=== PATIENT | male | born 1985 | race Caucasian/White ===

== ENCOUNTER 2017-03-06 19:30 | Emergency (ER) | payer OTHER ==
[2017-03-06 21:38] VITALS: BP 165/86
--- NOTE | 2017-03-06 21:55 | UC ---
Kassandra Beltrán Nilda, scribed for Azeb Leonard MD on 03/06/17 at 2106 . Complaint Male HPI - HPI Summary HPI Summary: This patient is a 31 year old M presenting to [facility] [place] with a chief complaint of penile bleeding s/p manually manipulating penis back into sheath earlier this evening while masturbating. Pt states he was erect at the time. Patient states he felt a pop at which time blood began to flow from a tear underneath the side of head of erect penis. Penis became completely flaccid immediately when bleeding began. Initially mild pain. No current pain. Bleeding temporarily subsided but has now returned with the pt comparing the flow of blood to epistaxis. The patient rates the aching pain 1/10 in severity with discomfort localized at site of bleeding. No analgesia taken. Patient denies pain, swelling, and ecchymosis in testicles or scrotum. He states he has not urinated since trauma occurred. Pt has no Hx of STI as well as no concerns of STI. Last tetanus shot was 5 years ago, per pt. He denies blood thinner medication, but takes Lisinopril daily. Patients medication reviewed this visit. - History of Current Complaint Chief Complaint: UCSkin Stated Complaint: PERSONAL Time Seen by Provider: 03/06/17 20:55 Hx Obtained From: Patient Onset/Duration: Sudden Onset, Lasting Hours, Still Present Severity Currently: Mild Pain Intensity: 1 Pain Scale Used: 0-10 Numeric Location: Penis Associated Signs And Symptoms: Positive: Penile Discharge - bleeding - Allergies/Home Medications Allergies/Adverse Reactions: Allergies Allergy/AdvReac Type Severity Reaction Status Date / Time No Known Allergies Allergy Verified 03/06/17 19:46 Home Medications: Home Medications Atorvastatin* [Lipitor*] 20 mg PO 1700 03/06/17 [History Confirmed 03/06/17] Lisinopril [Lisinopril 2.5 MG-] 2.5 mg PO DAILY 03/06/17 [History Confirmed ] PMH/Surg Hx/FS Hx/Imm Hx Previously Healthy: Yes Cardiovascular History: Hypertension - Surgical History Surgical History: None - Family History Known Family History: Positive: Hypertension, Diabetes - Social History Occupation: Employed Full-time Alcohol Use: None Substance Use Type: None Smoking Status (MU): Never Smoked Tobacco - Immunization History Most Recent Influenza Vaccination: not this season Most Recent Tetanus Shot: up to date - 2014 Most Recent Pneumonia Vaccination: unknown Review of Systems Constitutional: Negative Skin: Other - tear on foreskin of penis Genitourinary: Other - penile bleeding; negative pain, swelling, and ecchymosis of testicles All Other Systems Reviewed And Are Negative: Yes Physical Exam Triage Information Reviewed: Yes Appearance: Well-Appearing, No Pain Distress, Well-Nourished Vital Signs: Initial Vital Signs Temp 98.5 F 03/06/17 19:39 Pulse 117 03/06/17 19:39 Resp 18 03/06/17 19:39 BP 153/94 03/06/17 19:39 Pulse Ox 100 03/06/17 19:39 Vital Signs Reviewed: Yes Eyes: Negative: Discharge ENT: Positive: Hearing grossly normal Neck exam: Normal Neck: Positive: Supple, Nontender, No Lymphadenopathy Respiratory Exam: Normal Respiratory: Positive: Chest non-tender, Lungs clear, Normal breath sounds, No respiratory distress, No accessory muscle use Cardiovascular Exam: Normal Cardiovascular: Positive: RRR, No Murmur Abdominal Exam: Normal Abdomen Description: Positive: Nontender, No Organomegaly, Soft, Other: - abd soft penis flaccid, uncircumcised retraction of foreskin reveal a 5mm laceration volar aspect of the glans. slight trickle bleeding No edema or ecchymosis of the shaft No apparent malalignment No edema, ecchymosis or discomfort of the scrotum or testicle bilaterally Bowel Sounds: Positive: Present Musculoskeletal Exam: Normal Musculoskeletal: Positive: Strength Intact Neurological Exam: Normal Psychological Exam: Normal Complaint Male Course/Dx - Course Course Of Treatment: This patient is a 31 year old M presenting to [facility] [place] with a chief complaint of penile bleeding s/p manually manipulating penis back into sheath earlier this evening. Patient states he felt a pop at which time blood began to flow from a tear underneath the side of head of erect penis. Penis became completely flaccid immediately when bleeding began. Bleeding temporarily subsided but has now returned with the pt comparing the flow of blood to epistaxis. The patient rates the aching pain 1/10 in severity with discomfort localized at site of bleeding. Patient denies pain, swelling, and ecchymosis in testicles. He states he has not urinated since trauma occurred. Pt has no Hx of STI as well as no concerns of STI. Last tetanus shot was 5 years ago, per pt. He denies blood thinner medication, but takes Lisinopril daily. Patients medication reviewed this visit. . Pt ambulated to the bathroom and was able to urinate without difficulty. Blood pressure noted Pt is on lisinopril. [2114 ] consult with Dr. Leon (urology) to discuss plan of care. No it architecture consultant this evening. Concerned as pt became flaccid with popping sound. Recommend pt transfer to [facility] for further evaluation of penile fracture. Call to [facility] transfer center - awaiting call back. 2150. Spoke with Dr. NGO in the ED. Accepting pt to [address] [place] [address] - Differential Dx/Diagnosis Provider Diagnoses: penile injury. penile laceration - Physician Notifications Discussed Patient Care With: Edi Leon - Urology Time Discussed With Above Provider: 21:15 Instructed by Provider To: Other - recommends imaging. Discussed plan of care. Discharge - Discharge Plan Condition: Stable Disposition: [facility] CARE FAC Patient Education Materials: Laceration (ED) Referrals: Praful Hsieh MD [Primary Care Provider] - Additional Instructions: The doctor that evaluated you at the urgent care center recommends you go to the emergency department in [place]. Bring the packet of information with you to the emergency department. The documentation as recorded by the Kassandra disla Nilda accurately reflects the service I personally performed and the decisions made by me, Azeb Leonard MD.
== END 2017-03-06 22:10 | disposition short-term general hospital (02) ==
LOC: UCEAST 19:30
DX: S31.21XA Laceration without foreign body of penis, initial encounter (principal); S39.848A Other specified injuries of external genitals, initial encounter; X58.XXXA Exposure to other specified factors, initial encounter; Y93.89 Activity, other specified; Y92.9 Unspecified place or not applicable; Y99.9 Unspecified external cause status; I10 Essential (primary) hypertension
CPT/HCPCS: 99212; G0463

== ENCOUNTER 2022-01-04 01:26 | Inpatient (IN) ==
[2022-01-04] MEDS ORDERED: LACTATED RINGERS IV ONE (05:43)
[2022-01-04] MEDS ORDERED: Piperacillin/Tazobac ADVAN 3.375 GM in NS 0.9% 100 ml BAG 100 ML IV ONE (05:59)
[2022-01-04] MEDS ORDERED: Vancomycin 2,000 MG in NS 0.9% 250 ml 250 ML IVPB SCH (06:00)
[2022-01-04 06:03] LABS: ABS Basophils 0.1 10^3/ul (0-0.2); ABS Lymphocytes 1.1 10^3/ul (1.0-4.8); ABS Monocytes 1.3 10^3/ul (0-0.8); ABS Neutrophils 15.3 10^3/ul (1.5-7.7); ABS Nucleated RBC 0.1 10^3/ul; Eosinophil % 0.2 %; Hematocrit 40 % (42-52); Hemoglobin 13.4 g/dL (14.0-18.0); Lymphocyte % 6.1 %; Mean Corpuscular HGB Conc 34 g/dL (31-36); Mean Corpuscular Hemoglobin 29 pg (27-31); Mean Corpuscular Volume 85 fL (80-94); Mean Platelet Volume 7.1 fL (7.4-10.4); Nucleated Red Blood Cells % 0.4; Platelet Count 341 10^3/uL (150-450); Red Blood Count 4.67 10^6 /uL (4.18-5.48); Red Cell Distribution Width 15 % (10-15); White Blood Count 17.9 10^3/uL (3.5-10.8)
[2022-01-04 06:20] LABS: Activated Partial Thrombo Time 35.9 seconds (26.0-38.0); INR 1.27 (0.89-1.11)
[2022-01-04 06:50] LABS: Albumin 4.1 g/dL (3.2-5.2); Albumin/Globulin Ratio 1.1 (1-3); C Reactive Protein 197.88 mg/L (<8.01); Calcium 9.5 mg/dL (8.6-10.3); Globulin 3.7 g/dL (2-4); Potassium 4.8 mmol/L (3.5-5.0); Total Bilirubin 0.7 mg/dL (0.2-1.0); Total Protein 7.8 g/dL (6.4-8.9)
[2022-01-04 07:28] LABS: High Sensitivity Troponin 1 Hr 3 pg/mL (<20)
[2022-01-04] MEDS ORDERED: Vancomycin 2,000 MG in NS 0.9% 500 ml BAG 500 ML IVPB ONE (09:30)
[2022-01-04] MEDS ORDERED: Dextrose 50% Syringe 50 ml 25 GM/50 ML SYRINGE IV PUSH PRN (12:23)
[2022-01-04] MEDS: Enoxaparin 40 MG/0.4 ML SYR SUBCUT SCH (12:55)
[2022-01-04] MEDS ORDERED: Vancomycin per Pharmacy 1 EA NOTE FOLLOW UP SCH (13:00)
[2022-01-04] MEDS: metroNIDAZOLE IV 500 MG/100ML 500 MG/100 ML BAG IVPB SCH (13:30)
[2022-01-04] MEDS: Cefepime 2 GM in Dextrose 2 GM/50 ML BAG IV SCH ×2 (13:30→23:52)
[2022-01-04 16:55] LABS: Urine Appearance Clear; Urine Bilirubin Negative (Negative); Urine Blood Negative (Negative); Urine Color Straw; Urine Glucose 3+(>=500 mg/dL) (Negative); Urine Ketones Negative (Negative); Urine Nitrite Negative (Negative); Urine Protein Negative (Negative); Urine Specific Gravity 1.017 (1.002-1.030); Urine Urobilinogen Negative (Negative)
[2022-01-04] MEDS ORDERED: Gadoteridol (CONTRAST) 279.3 MG/ML 10 ML IV ONE (17:16)
[2022-01-04] MEDS: Vancomycin 1,500 MG in NS 0.9% 250 ml 250 ML IVPB SCH (21:49)
[2022-01-05] MEDS: metroNIDAZOLE IV 500 MG/100ML 500 MG/100 ML BAG IVPB SCH ×2 (00:28→13:25)
[2022-01-05 07:19] LABS: ABS Basophils 0.1 10^3/ul (0-0.2); ABS Eosinophils 0.1 10^3/ul (0-0.6); ABS Lymphocytes 1.1 10^3/ul (1.0-4.8); ABS Monocytes 0.9 10^3/ul (0-0.8); ABS Neutrophils 9.7 10^3/ul (1.5-7.7); Eosinophil % 0.5 %; Hematocrit 36 % (42-52); Hemoglobin 11.5 g/dL (14.0-18.0); Lymphocyte % 9.1 %; Mean Corpuscular HGB Conc 32 g/dL (31-36); Mean Corpuscular Hemoglobin 28 pg (27-31); Mean Corpuscular Volume 87 fL (80-94); Mean Platelet Volume 7.2 fL (7.4-10.4); Platelet Count 278 10^3/uL (150-450); Red Blood Count 4.06 10^6 /uL (4.18-5.48); Red Cell Distribution Width 15 % (10-15); White Blood Count 11.8 10^3/uL (3.5-10.8)
[2022-01-05 08:01] LABS: Potassium 4.9 mmol/L (3.5-5.0); eGFR CKD-EPI 99.5 (>60)
[2022-01-05] MEDS: Vancomycin 1,500 MG in NS 0.9% 250 ml 250 ML IVPB SCH (11:00)
[2022-01-05] MEDS: Cefepime 2 GM in Dextrose 2 GM/50 ML BAG IV SCH (12:50)
[2022-01-05 12:55] LABS: C Reactive Protein 231.15 mg/L (<8.01)
[2022-01-05] MEDS: Enoxaparin 40 MG/0.4 ML SYR SUBCUT SCH (13:32)
[2022-01-05] MEDS: METFORMIN 500 MG PO SCH (20:19)
[2022-01-06] MEDS: Cefepime 2 GM in Dextrose 2 GM/50 ML BAG IV SCH (00:05)
[2022-01-06] MEDS: metroNIDAZOLE IV 500 MG/100ML 500 MG/100 ML BAG IVPB SCH ×2 (00:38→13:15)
[2022-01-06 05:31] LABS: ABS Basophils 0.1 10^3/ul (0-0.2); ABS Lymphocytes 1.1 10^3/ul (1.0-4.8); ABS Neutrophils 11.8 10^3/ul (1.5-7.7); Eosinophil % 0.3 %; Hematocrit 35 % (42-52); Hemoglobin 11.6 g/dL (14.0-18.0); Lymphocyte % 7.8 %; Mean Corpuscular HGB Conc 33 g/dL (31-36); Mean Corpuscular Hemoglobin 28 pg (27-31); Mean Corpuscular Volume 85 fL (80-94); Mean Platelet Volume 6.8 fL (7.4-10.4); Platelet Count 324 10^3/uL (150-450); Red Blood Count 4.08 10^6 /uL (4.18-5.48); Red Cell Distribution Width 15 % (10-15)
[2022-01-06 06:50] LABS: Magnesium 1.8 mg/dL (1.9-2.7); eGFR CKD-EPI 98.3 (>60)
[2022-01-06] MEDS ORDERED: Vancomycin Trough Check NOTE FOLLOW UP ONE ×2 (09:30)
[2022-01-06] MEDS ORDERED: fentaNYL 100 mcg/2 ml 50 MCG/ML VIAL ONE (10:19)
[2022-01-06] MEDS ORDERED: Lidocaine 2% PF 5 ML VIAL ONE (10:19)
[2022-01-06] MEDS ORDERED: Metoclopramide 5 MG/ML VIAL (10 mg) ONE (10:19)
[2022-01-06] MEDS ORDERED: Dexamethasone IV 4 MG/ML VIAL 1 ml VIAL ONE (10:19)
[2022-01-06] MEDS ORDERED: Ondansetron 4 mg VIAL 2 MG/ML 2 ml VIAL ONE (10:19)
[2022-01-06] MEDS ORDERED: ceFAZolin VIAL VIAL ONE (10:27)
[2022-01-06] MEDS: METFORMIN 500 MG PO SCH (10:45)
[2022-01-06] MEDS ORDERED: fentaNYL 100 mcg/2 ml 50 MCG/ML VIAL IV PRN (10:58)
[2022-01-06] MEDS ORDERED: Prochlorperazine 5 mg/ml 2 ml VIAL (10 mg) IV PRN (10:58)
[2022-01-06] MEDS ORDERED: HYDROmorphone 1 MG/1 ML SYRINGE IV PRN (10:58)
[2022-01-06] MEDS ORDERED: Ondansetron 4 mg VIAL 2 MG/ML 2 ml VIAL IV PRN (10:58)
[2022-01-06] MEDS ORDERED: Propofol 10 MG/ML 20 ML BTL ONE (11:03)
[2022-01-06] MEDS: Pantoprazole VIAL 40 MG VIAL IV SCH (12:37)
[2022-01-06] MEDS: cefTRIAXone 2 gm/50 mL D5W 2 GM/50 ML BAG IV SCH (12:43)
[2022-01-06] MEDS: Enoxaparin 40 MG/0.4 ML SYR SUBCUT SCH (13:11)
[2022-01-07] MEDS: metroNIDAZOLE IV 500 MG/100ML 500 MG/100 ML BAG IVPB SCH ×2 (00:52→13:38)
[2022-01-07 06:45] LABS: ABS Basophils 0.1 10^3/ul (0-0.2); ABS Eosinophils 0.1 10^3/ul (0-0.6); ABS Lymphocytes 1.1 10^3/ul (1.0-4.8); ABS Neutrophils 13.1 10^3/ul (1.5-7.7); Eosinophil % 0.4 %; Hematocrit 34 % (42-52); Hemoglobin 11.2 g/dL (14.0-18.0); Lymphocyte % 7.2 %; Mean Corpuscular HGB Conc 33 g/dL (31-36); Mean Corpuscular Hemoglobin 29 pg (27-31); Mean Corpuscular Volume 86 fL (80-94); Mean Platelet Volume 7.1 fL (7.4-10.4); Platelet Count 329 10^3/uL (150-450); Red Blood Count 3.94 10^6 /uL (4.18-5.48); Red Cell Distribution Width 15 % (10-15); White Blood Count 15.3 10^3/uL (3.5-10.8)
[2022-01-07 07:17] LABS: Blood Urea Nitrogen 23 mg/dL (6-24); CO2 Carbon Dioxide 19 mmol/L (22-32); Calcium 9.1 mg/dL (8.6-10.3); Chloride 101 mmol/L (101-111); Glucose 210 mg/dL (70-100); Sodium 134 mmol/L (135-145); eGFR CKD-EPI 89.8 (>60)
[2022-01-07 07:37] LABS: Anion Gap 14 mmol/L (2-11); CRP High Sensitivity 186.72 mg/L (<2.00)
[2022-01-07] MEDS: Pantoprazole VIAL 40 MG VIAL IV SCH (08:22)
[2022-01-07] MEDS: cefTRIAXone 2 gm/50 mL D5W 2 GM/50 ML BAG IV SCH (12:50)
[2022-01-07] MEDS: Enoxaparin 40 MG/0.4 ML SYR SUBCUT SCH (13:41)
[2022-01-07] MEDS ORDERED: NS 0.9% 500 ml BAG 500 ML IV ONE (16:36)
[2022-01-08] MEDS: metroNIDAZOLE IV 500 MG/100ML 500 MG/100 ML BAG IVPB SCH ×2 (01:09→13:48)
[2022-01-08 06:19] LABS: ABS Basophils 0.1 10^3/ul (0-0.2); ABS Eosinophils 0.1 10^3/ul (0-0.6); ABS Lymphocytes 1.5 10^3/ul (1.0-4.8); ABS Neutrophils 12.4 10^3/ul (1.5-7.7); Hematocrit 34 % (42-52); Hemoglobin 11.3 g/dL (14.0-18.0); Lymphocyte % 9.7 %; Mean Corpuscular HGB Conc 33 g/dL (31-36); Mean Corpuscular Hemoglobin 29 pg (27-31); Mean Corpuscular Volume 86 fL (80-94); Mean Platelet Volume 7.3 fL (7.4-10.4); Platelet Count 356 10^3/uL (150-450); Red Blood Count 3.95 10^6 /uL (4.18-5.48); Red Cell Distribution Width 15 % (10-15)
[2022-01-08 06:34] LABS: Blood Urea Nitrogen 22 mg/dL (6-24); CO2 Carbon Dioxide 19 mmol/L (22-32); Chloride 100 mmol/L (101-111); Glucose 201 mg/dL (70-100); Sodium 130 mmol/L (135-145)
[2022-01-08 06:35] LABS: C Reactive Protein 236.87 mg/L (<8.01); Calcium 9.1 mg/dL (8.6-10.3); eGFR CKD-EPI 109.8 (>60)
[2022-01-08 06:40] LABS: Anion Gap 11 mmol/L (2-11)
[2022-01-08] MEDS ORDERED: SODIUM ZIRCONIUM CYCLOSILICATE 5 GM PACKET PO ONE (08:47)
[2022-01-08] MEDS: Pantoprazole VIAL 40 MG VIAL IV SCH (09:03)
[2022-01-08] MEDS: Enoxaparin 40 MG/0.4 ML SYR SUBCUT SCH (13:51)
[2022-01-08] MEDS: cefTRIAXone 2 gm/50 mL D5W 2 GM/50 ML BAG IV SCH (15:01)
[2022-01-09] MEDS: metroNIDAZOLE IV 500 MG/100ML 500 MG/100 ML BAG IVPB SCH ×2 (01:55→12:44)
[2022-01-09 06:10] LABS: ABS Basophils 0.1 10^3/ul (0-0.2); ABS Eosinophils 0.2 10^3/ul (0-0.6); ABS Lymphocytes 1.7 10^3/ul (1.0-4.8); ABS Monocytes 0.8 10^3/ul (0-0.8); Eosinophil % 1.5 %; Hematocrit 36 % (42-52); Mean Corpuscular HGB Conc 33 g/dL (31-36); Mean Corpuscular Hemoglobin 28 pg (27-31); Mean Corpuscular Volume 85 fL (80-94); Mean Platelet Volume 7.5 fL (7.4-10.4); Platelet Count 400 10^3/uL (150-450); Red Blood Count 4.24 10^6 /uL (4.18-5.48); Red Cell Distribution Width 15 % (10-15); White Blood Count 13.8 10^3/uL (3.5-10.8)
[2022-01-09 06:55] LABS: Blood Urea Nitrogen 24 mg/dL (6-24); C Reactive Protein 180.35 mg/L (<8.01); CO2 Carbon Dioxide 20 mmol/L (22-32); Calcium 9.2 mg/dL (8.6-10.3); Chloride 97 mmol/L (101-111); Glucose 185 mg/dL (70-100); Sodium 135 mmol/L (135-145); eGFR CKD-EPI 114.2 (>60)
[2022-01-09 06:59] LABS: Anion Gap 18 mmol/L (2-11)
[2022-01-09] MEDS: Pantoprazole VIAL 40 MG VIAL IV SCH (08:41)
[2022-01-09] MEDS ORDERED: ceFAZolin 2 GM in NS PREMIX 2 GM/100 ML BAG IVPB SCH (10:00)
[2022-01-09] MEDS ORDERED: Vancomycin per Pharmacy 1 EA NOTE FOLLOW UP SCH (12:00)
[2022-01-09] MEDS: Enoxaparin 40 MG/0.4 ML SYR SUBCUT SCH (12:46)
[2022-01-09] MEDS: Insulin GLARGINE 100 un/ml 10 ml VIAL SUBCUT SCH (12:47)
[2022-01-09] MEDS ORDERED: Vancomycin 2,000 MG in NS 0.9% 500 ml BAG 500 ML IVPB ONE (14:30)
[2022-01-09] MEDS ORDERED: Vancomycin 1,250 MG in NS 0.9% 250 ml 250 ML IVPB SCH (22:30)
[2022-01-10] MEDS ORDERED: cefTRIAXone 2 gm/50 mL D5W 2 GM/50 ML BAG IV ONE (00:17)
[2022-01-10] MEDS: metroNIDAZOLE IV 500 MG/100ML 500 MG/100 ML BAG IVPB SCH ×2 (03:52→13:10)
[2022-01-10] MEDS: Vancomycin 1,500 MG in NS 0.9% 250 ml 250 ML IVPB SCH ×2 (05:42→17:49)
[2022-01-10 06:16] LABS: ABS Eosinophils 0.2 10^3/ul (0-0.6); ABS Lymphocytes 1.1 10^3/ul (1.0-4.8); ABS Monocytes 0.6 10^3/ul (0-0.8); ABS Neutrophils 9.9 10^3/ul (1.5-7.7); Eosinophil % 1.4 %; Hematocrit 39 % (42-52); Hemoglobin 13.4 g/dL (14.0-18.0); Lymphocyte % 9.3 %; Mean Corpuscular HGB Conc 34 g/dL (31-36); Mean Corpuscular Hemoglobin 29 pg (27-31); Mean Corpuscular Volume 85 fL (80-94); Mean Platelet Volume 7.4 fL (7.4-10.4); Nucleated Red Blood Cells % 0.1; Platelet Count 400 10^3/uL (150-450); Red Blood Count 4.63 10^6 /uL (4.18-5.48); Red Cell Distribution Width 15 % (10-15); White Blood Count 11.8 10^3/uL (3.5-10.8)
[2022-01-10 06:40] LABS: Calcium 8.8 mg/dL (8.6-10.3); Potassium 4.6 mmol/L (3.5-5.0)
[2022-01-10] MEDS: Pantoprazole VIAL 40 MG VIAL IV SCH (08:25)
[2022-01-10 08:40] LABS: C Reactive Protein 137.98 mg/L (<8.01)
[2022-01-10] MEDS: Insulin GLARGINE 100 un/ml 10 ml VIAL SUBCUT SCH (09:59)
[2022-01-10] MEDS: Enoxaparin 40 MG/0.4 ML SYR SUBCUT SCH (13:04)
[2022-01-10] MEDS ORDERED: Vancomycin Trough Check NOTE FOLLOW UP ONE (13:30)
[2022-01-10] MEDS ORDERED: Gadoteridol (CONTRAST) 279.3 MG/ML 10 ML IV ONE (14:40)
[2022-01-11] MEDS: cefTRIAXone 2 gm/50 mL D5W 2 GM/50 ML BAG IV SCH (00:58)
[2022-01-11] MEDS: metroNIDAZOLE IV 500 MG/100ML 500 MG/100 ML BAG IVPB SCH ×2 (01:32→13:27)
[2022-01-11] MEDS ORDERED: Vancomycin Trough Check NOTE FOLLOW UP ONE (05:30)
[2022-01-11 05:43] LABS: ABS Basophils 0.1 10^3/ul (0-0.2); ABS Eosinophils 0.2 10^3/ul (0-0.6); ABS Lymphocytes 1.8 10^3/ul (1.0-4.8); ABS Monocytes 0.7 10^3/ul (0-0.8); ABS Neutrophils 6.4 10^3/ul (1.5-7.7); Eosinophil % 2.5 %; Hematocrit 36 % (42-52); Lymphocyte % 19.2 %; Mean Corpuscular HGB Conc 33 g/dL (31-36); Mean Corpuscular Hemoglobin 28 pg (27-31); Mean Corpuscular Volume 84 fL (80-94); Platelet Count 395 10^3/uL (150-450); Red Blood Count 4.26 10^6 /uL (4.18-5.48); Red Cell Distribution Width 15 % (10-15); White Blood Count 9.2 10^3/uL (3.5-10.8)
[2022-01-11 06:08] LABS: Calcium 8.8 mg/dL (8.6-10.3); Potassium 4.5 mmol/L (3.5-5.0); eGFR CKD-EPI 118.8 (>60)
[2022-01-11] MEDS: Vancomycin 1,500 MG in NS 0.9% 250 ml 250 ML IVPB SCH (06:13)
[2022-01-11 08:48] LABS: C Reactive Protein 98.46 mg/L (<8.01)
[2022-01-11] MEDS: Insulin GLARGINE 100 un/ml 10 ml VIAL SUBCUT SCH (10:11)
[2022-01-11] MEDS: Pantoprazole VIAL 40 MG VIAL IV SCH (10:21)
[2022-01-11] MEDS: Enoxaparin 40 MG/0.4 ML SYR SUBCUT SCH (13:25)
[2022-01-11] MEDS: Vancomycin 1,750 MG in NS 0.9% 500 ml BAG 500 ML IVPB SCH (19:06)
[2022-01-12] MEDS: cefTRIAXone 2 gm/50 mL D5W 2 GM/50 ML BAG IV SCH (00:44)
[2022-01-12] MEDS: metroNIDAZOLE IV 500 MG/100ML 500 MG/100 ML BAG IVPB SCH ×2 (01:47→12:38)
[2022-01-12 06:12] LABS: Hematocrit 34 % (42-52); Hemoglobin 11.3 g/dL (14.0-18.0); Mean Corpuscular HGB Conc 33 g/dL (31-36); Mean Corpuscular Hemoglobin 28 pg (27-31); Mean Corpuscular Volume 84 fL (80-94); Mean Platelet Volume 7.2 fL (7.4-10.4); Platelet Count 380 10^3/uL (150-450); Red Blood Count 4.03 10^6 /uL (4.18-5.48); Red Cell Distribution Width 14 % (10-15); White Blood Count 7.7 10^3/uL (3.5-10.8)
[2022-01-12 06:35] LABS: Calcium 8.3 mg/dL (8.6-10.3); Potassium 4.4 mmol/L (3.5-5.0); eGFR CKD-EPI 122.7 (>60)
[2022-01-12] MEDS: Vancomycin 1,750 MG in NS 0.9% 500 ml BAG 500 ML IVPB SCH ×2 (07:23→18:14)
[2022-01-12 08:31] LABS: ABS Eosinophils 0.2 10^3/ul (0-0.6); ABS Lymphocytes 1.6 10^3/ul (1.0-4.8); ABS Monocytes 0.6 10^3/ul (0-0.8); ABS Neutrophils 5.4 10^3/ul (1.5-7.7); Lymphocyte % 20.4 %; Nucleated Red Blood Cells % 0.1
[2022-01-12] MEDS: Insulin GLARGINE 100 un/ml 10 ml VIAL SUBCUT SCH (08:44)
[2022-01-12] MEDS: Pantoprazole VIAL 40 MG VIAL IV SCH (08:46)
[2022-01-12] MEDS: Enoxaparin 40 MG/0.4 ML SYR SUBCUT SCH (12:36)
[2022-01-13] MEDS: cefTRIAXone 2 gm/50 mL D5W 2 GM/50 ML BAG IV SCH (00:55)
[2022-01-13] MEDS: metroNIDAZOLE IV 500 MG/100ML 500 MG/100 ML BAG IVPB SCH ×2 (02:38→12:28)
[2022-01-13] MEDS ORDERED: Vancomycin Random Level NOTE FOLLOW UP ONE (06:00)
[2022-01-13 06:08] LABS: ABS Basophils 0.1 10^3/ul (0-0.2); ABS Eosinophils 0.2 10^3/ul (0-0.6); ABS Lymphocytes 1.9 10^3/ul (1.0-4.8); ABS Monocytes 0.6 10^3/ul (0-0.8); Eosinophil % 2.1 %; Hematocrit 34 % (42-52); Hemoglobin 11.2 g/dL (14.0-18.0); Lymphocyte % 24.3 %; Mean Corpuscular HGB Conc 33 g/dL (31-36); Mean Corpuscular Hemoglobin 28 pg (27-31); Mean Corpuscular Volume 85 fL (80-94); Mean Platelet Volume 7.5 fL (7.4-10.4); Nucleated Red Blood Cells % 0.1; Platelet Count 385 10^3/uL (150-450); Red Blood Count 4.05 10^6 /uL (4.18-5.48); Red Cell Distribution Width 15 % (10-15); White Blood Count 7.8 10^3/uL (3.5-10.8)
[2022-01-13 06:28] LABS: C Reactive Protein 47.35 mg/L (<8.01); Calcium 8.4 mg/dL (8.6-10.3); Potassium 4.1 mmol/L (3.5-5.0); Vancomycin Trough 11.7 mcg/mL; eGFR CKD-EPI 117.5 (>60)
[2022-01-13] MEDS: Vancomycin 1,750 MG in NS 0.9% 500 ml BAG 500 ML IVPB SCH (06:40)
[2022-01-13] MEDS: Pantoprazole VIAL 40 MG VIAL IV SCH (08:58)
[2022-01-13] MEDS: Insulin GLARGINE 100 un/ml 10 ml VIAL SUBCUT SCH (08:59)
[2022-01-13] MEDS: Enoxaparin 40 MG/0.4 ML SYR SUBCUT SCH (12:39)
[2022-01-13] MEDS ORDERED: Famotidine IV 10 MG/ML 2 ml VIAL (20 mg) IV ONE (13:21)
[2022-01-13] MEDS ORDERED: Famotidine IV 10 MG/ML 2 ml VIAL (20 mg) ONE (13:25)
[2022-01-13] MEDS ORDERED: Ondansetron 4 mg VIAL 2 MG/ML 2 ml VIAL ONE (18:08)
[2022-01-13] MEDS ORDERED: fentaNYL 100 mcg/2 ml 50 MCG/ML VIAL ONE ×2 (18:08→18:43)
[2022-01-13] MEDS ORDERED: Propofol 10 MG/ML 20 ML BTL ONE (18:08)
[2022-01-13] MEDS ORDERED: Lidocaine 2% PF 5 ML VIAL ONE (18:08)
[2022-01-13] MEDS ORDERED: Midazolam 5 mg/5 ml VIAL 1 mg/ml 5 ml VIAL (5 mg) ONE (18:08)
[2022-01-13] MEDS ORDERED: Bupivacaine 0.5% SDV PF 30ML VIAL ONE (18:10)
[2022-01-13] MEDS ORDERED: Lidocaine 1% w EPI 1:200,000 SDV 30 ML VIAL ONE (18:10)
[2022-01-13] MEDS ORDERED: Vancomycin 2,000 MG in NS 0.9% 500 ml BAG 500 ML IVPB SCH (18:30)
[2022-01-13] MEDS ORDERED: HYDROmorphone 0.5 MG/0.5 ML SYRINGE ONE (18:54)
[2022-01-13] MEDS ORDERED: Naloxone 0.4 mg VIAL 0.4 mg/ml 1 ml VIAL IV PRN (19:51)
[2022-01-13] MEDS ORDERED: Ondansetron 4 mg VIAL 2 MG/ML 2 ml VIAL IV PRN (19:51)
[2022-01-13] MEDS ORDERED: fentaNYL 100 mcg/2 ml 50 MCG/ML VIAL IV PRN (19:51)
[2022-01-13] MEDS ORDERED: HYDROmorphone 1 MG/1 ML SYRINGE IV PRN (19:51)
[2022-01-14] MEDS: cefTRIAXone 2 gm/50 mL D5W 2 GM/50 ML BAG IV SCH (01:49)
[2022-01-14] MEDS: metroNIDAZOLE IV 500 MG/100ML 500 MG/100 ML BAG IVPB SCH ×2 (02:35→13:44)
[2022-01-14 04:52] LABS: ABS Basophils 0.1 10^3/ul (0-0.2); ABS Eosinophils 0.2 10^3/ul (0-0.6); ABS Lymphocytes 1.9 10^3/ul (1.0-4.8); ABS Monocytes 0.5 10^3/ul (0-0.8); ABS Neutrophils 5.1 10^3/ul (1.5-7.7); Eosinophil % 1.9 %; Hematocrit 33 % (42-52); Hemoglobin 10.9 g/dL (14.0-18.0); Lymphocyte % 24.8 %; Mean Corpuscular HGB Conc 33 g/dL (31-36); Mean Corpuscular Hemoglobin 28 pg (27-31); Mean Corpuscular Volume 85 fL (80-94); Mean Platelet Volume 7.2 fL (7.4-10.4); Nucleated Red Blood Cells % 0.1; Platelet Count 386 10^3/uL (150-450); Red Blood Count 3.89 10^6 /uL (4.18-5.48); Red Cell Distribution Width 15 % (10-15); White Blood Count 7.8 10^3/uL (3.5-10.8)
[2022-01-14 05:09] LABS: eGFR CKD-EPI 118.4 (>60)
[2022-01-14 05:26] LABS: Calcium 8.6 mg/dL (8.6-10.3)
[2022-01-14] MEDS: Pantoprazole VIAL 40 MG VIAL IV SCH (08:54)
[2022-01-14] MEDS: Insulin GLARGINE 100 un/ml 10 ml VIAL SUBCUT SCH (08:55)
[2022-01-14] MEDS: Vancomycin 2,000 MG in NS 0.9% 500 ml BAG 500 ML IVPB SCH ×2 (10:37→22:15)
[2022-01-14] MEDS: Enoxaparin 40 MG/0.4 ML SYR SUBCUT SCH (13:16)
[2022-01-15] MEDS: cefTRIAXone 2 gm/50 mL D5W 2 GM/50 ML BAG IV SCH (00:36)
[2022-01-15] MEDS: metroNIDAZOLE IV 500 MG/100ML 500 MG/100 ML BAG IVPB SCH ×2 (01:17→15:02)
[2022-01-15] MEDS: Pantoprazole VIAL 40 MG VIAL IV SCH (09:26)
[2022-01-15] MEDS: Insulin GLARGINE 100 un/ml 10 ml VIAL SUBCUT SCH (09:27)
[2022-01-15] MEDS ORDERED: Vancomycin Trough Check NOTE FOLLOW UP ONE (09:30)
[2022-01-15 09:43] LABS: Hematocrit 37 % (42-52); Hemoglobin 12.2 g/dL (14.0-18.0); Mean Corpuscular HGB Conc 33 g/dL (31-36); Mean Corpuscular Hemoglobin 28 pg (27-31); Mean Corpuscular Volume 85 fL (80-94); Mean Platelet Volume 6.9 fL (7.4-10.4); Platelet Count 382 10^3/uL (150-450); Red Cell Distribution Width 15 % (10-15); White Blood Count 6.4 10^3/uL (3.5-10.8)
[2022-01-15 11:21] LABS: Calcium 8.9 mg/dL (8.6-10.3); Potassium 4.4 mmol/L (3.5-5.0); eGFR CKD-EPI 119.7 (>60)
[2022-01-15 11:29] LABS: ABS Eosinophils 0.1 10^3/ul (0-0.6); ABS Lymphocytes 1.6 10^3/ul (1.0-4.8); ABS Monocytes 0.5 10^3/ul (0-0.8); ABS Neutrophils 4.2 10^3/ul (1.5-7.7); Lymphocyte % 24.2 %
[2022-01-15] MEDS: Vancomycin 2,000 MG in NS 0.9% 500 ml BAG 500 ML IVPB SCH ×2 (11:41→21:48)
[2022-01-15] MEDS: Enoxaparin 40 MG/0.4 ML SYR SUBCUT SCH (15:02)
[2022-01-16] MEDS: cefTRIAXone 2 gm/50 mL D5W 2 GM/50 ML BAG IV SCH (01:13)
[2022-01-16] MEDS: metroNIDAZOLE IV 500 MG/100ML 500 MG/100 ML BAG IVPB SCH (01:55)
[2022-01-16 06:27] LABS: ABS Eosinophils 0.2 10^3/ul (0-0.6); ABS Lymphocytes 1.7 10^3/ul (1.0-4.8); ABS Monocytes 0.5 10^3/ul (0-0.8); ABS Neutrophils 3.9 10^3/ul (1.5-7.7); Eosinophil % 2.6 %; Hematocrit 34 % (42-52); Hemoglobin 11.2 g/dL (14.0-18.0); Lymphocyte % 27.5 %; Mean Corpuscular HGB Conc 33 g/dL (31-36); Mean Corpuscular Hemoglobin 28 pg (27-31); Mean Corpuscular Volume 85 fL (80-94); Mean Platelet Volume 7.2 fL (7.4-10.4); Platelet Count 366 10^3/uL (150-450); Red Blood Count 3.98 10^6 /uL (4.18-5.48); Red Cell Distribution Width 15 % (10-15); White Blood Count 6.3 10^3/uL (3.5-10.8)
[2022-01-16 06:38] LABS: Calcium 8.5 mg/dL (8.6-10.3); Potassium 4.1 mmol/L (3.5-5.0); eGFR CKD-EPI 121.7 (>60)
[2022-01-16] MEDS: Insulin GLARGINE 100 un/ml 10 ml VIAL SUBCUT SCH (08:55)
[2022-01-16] MEDS: Pantoprazole VIAL 40 MG VIAL IV SCH (08:56)
[2022-01-16] MEDS: Vancomycin 2,000 MG in NS 0.9% 500 ml BAG 500 ML IVPB SCH ×2 (09:58→21:47)
[2022-01-16] MEDS: Enoxaparin 40 MG/0.4 ML SYR SUBCUT SCH (12:36)
[2022-01-17] MEDS: cefTRIAXone 2 gm/50 mL D5W 2 GM/50 ML BAG IV SCH (00:35)
[2022-01-17] MEDS: Pantoprazole VIAL 40 MG VIAL IV SCH (09:18)
[2022-01-17] MEDS: Insulin GLARGINE 100 un/ml 10 ml VIAL SUBCUT SCH (09:18)
[2022-01-17] MEDS ORDERED: Vancomycin Trough Check NOTE FOLLOW UP ONE (09:30)
[2022-01-17 09:34] LABS: Hematocrit 36 % (42-52); Mean Corpuscular HGB Conc 34 g/dL (31-36); Mean Corpuscular Hemoglobin 28 pg (27-31); Mean Corpuscular Volume 84 fL (80-94); Mean Platelet Volume 6.9 fL (7.4-10.4); Platelet Count 372 10^3/uL (150-450); Red Blood Count 4.25 10^6 /uL (4.18-5.48); Red Cell Distribution Width 15 % (10-15); White Blood Count 5.8 10^3/uL (3.5-10.8)
[2022-01-17 10:13] LABS: Calcium 9.1 mg/dL (8.6-10.3); Potassium 4.8 mmol/L (3.5-5.0); eGFR CKD-EPI 116.6 (>60)
[2022-01-17] MEDS: Vancomycin 2,000 MG in NS 0.9% 500 ml BAG 500 ML IVPB SCH ×2 (10:21→22:31)
[2022-01-17 10:50] LABS: ABS Basophils 0.1 10^3/ul (0-0.2); ABS Eosinophils 0.2 10^3/ul (0-0.6); ABS Lymphocytes 1.6 10^3/ul (1.0-4.8); ABS Monocytes 0.4 10^3/ul (0-0.8); ABS Neutrophils 3.6 10^3/ul (1.5-7.7); Eosinophil % 3.1 %; Lymphocyte % 27.1 %; Nucleated Red Blood Cells % 0.1
[2022-01-17] MEDS ORDERED: Midazolam 2 mg/2 ml VIAL 1 mg/ml 2 ml VIAL (2 mg) ONE (17:09)
[2022-01-17] MEDS ORDERED: Bupivacaine 0.25% SDV 30 ML ONE (17:44)
[2022-01-17] MEDS ORDERED: Dexamethasone IV 4 MG/ML VIAL 1 ml VIAL ONE (17:46)
[2022-01-17] MEDS ORDERED: Ondansetron 4 mg VIAL 2 MG/ML 2 ml VIAL ONE (17:46)
[2022-01-17] MEDS ORDERED: fentaNYL 100 mcg/2 ml 50 MCG/ML VIAL ONE (19:22)
[2022-01-17] MEDS: fentaNYL 100 mcg/2 ml 50 MCG/ML VIAL IV SLOW PU PRN ×2 (19:32→19:39)
[2022-01-18] MEDS: cefTRIAXone 2 gm/50 mL D5W 2 GM/50 ML BAG IV SCH (01:35)
[2022-01-18 06:08] LABS: ABS Lymphocytes 1.4 10^3/ul (1.0-4.8); ABS Monocytes 0.4 10^3/ul (0-0.8); ABS Neutrophils 8.8 10^3/ul (1.5-7.7); Eosinophil % 0.2 %; Hematocrit 35 % (42-52); Hemoglobin 11.6 g/dL (14.0-18.0); Lymphocyte % 13.3 %; Mean Corpuscular HGB Conc 33 g/dL (31-36); Mean Corpuscular Hemoglobin 28 pg (27-31); Mean Corpuscular Volume 85 fL (80-94); Mean Platelet Volume 7.2 fL (7.4-10.4); Platelet Count 400 10^3/uL (150-450); Red Blood Count 4.13 10^6 /uL (4.18-5.48); Red Cell Distribution Width 15 % (10-15); White Blood Count 10.7 10^3/uL (3.5-10.8)
[2022-01-18 06:33] LABS: Calcium 8.9 mg/dL (8.6-10.3); Magnesium 1.8 mg/dL (1.9-2.7); Potassium 4.4 mmol/L (3.5-5.0)
[2022-01-18] MEDS ORDERED: Magnesium Sulfate IV 1GM/100ML 1 GM/100 ML BAG IV ONE (06:58)
[2022-01-18] MEDS: Pantoprazole VIAL 40 MG VIAL IV SCH (08:55)
[2022-01-18] MEDS: Insulin GLARGINE 100 un/ml 10 ml VIAL SUBCUT SCH (08:55)
[2022-01-18] MEDS: Vancomycin 2,000 MG in NS 0.9% 500 ml BAG 500 ML IVPB SCH ×2 (10:54→21:45)
[2022-01-18] MEDS: Enoxaparin 40 MG/0.4 ML SYR SUBCUT SCH (13:21)
[2022-01-19] MEDS: cefTRIAXone 2 gm/50 mL D5W 2 GM/50 ML BAG IV SCH (00:49)
[2022-01-19 05:18] LABS: ABS Basophils 0.1 10^3/ul (0-0.2); ABS Eosinophils 0.2 10^3/ul (0-0.6); ABS Lymphocytes 2.3 10^3/ul (1.0-4.8); ABS Monocytes 0.4 10^3/ul (0-0.8); ABS Neutrophils 3.1 10^3/ul (1.5-7.7); Eosinophil % 2.6 %; Hematocrit 32 % (42-52); Hemoglobin 10.7 g/dL (14.0-18.0); Lymphocyte % 37.9 %; Mean Corpuscular HGB Conc 33 g/dL (31-36); Mean Corpuscular Hemoglobin 28 pg (27-31); Mean Corpuscular Volume 85 fL (80-94); Nucleated Red Blood Cells % 0.1; Platelet Count 329 10^3/uL (150-450); Red Cell Distribution Width 15 % (10-15)
[2022-01-19 05:58] LABS: Calcium 8.3 mg/dL (8.6-10.3); Magnesium 1.9 mg/dL (1.9-2.7); Potassium 3.9 mmol/L (3.5-5.0); eGFR CKD-EPI 117.5 (>60)
[2022-01-19] MEDS: Insulin GLARGINE 100 un/ml 10 ml VIAL SUBCUT SCH (09:07)
[2022-01-19] MEDS: Pantoprazole VIAL 40 MG VIAL IV SCH (09:07)
[2022-01-19] MEDS: Vancomycin 2,000 MG in NS 0.9% 500 ml BAG 500 ML IVPB SCH (09:25)
[2022-01-19 11:54] VITALS: BP 111/68
[2022-01-19] MEDS: Enoxaparin 40 MG/0.4 ML SYR SUBCUT SCH (11:59)
[2022-01-20] MEDS ORDERED: Vancomycin Trough Check NOTE FOLLOW UP ONE (09:30)
== END 2022-01-19 14:35 | disposition home or self-care (01) | DRG 854 ==
LOC: ED 01:26 → EDHOLD 01:26 → MERGE 08:31 → EDHOLD 10:24 → MCHPEDS 11:03 → SUATTDRO 01-06 11:00 → SSU 01-07 15:55
PROVIDERS: ADMIT Internal Medicine; ATTEND Internal Medicine

== ENCOUNTER 2023-11-14 09:45 | Inpatient (IN) ==
[~2023-11-14 09:45] MED LIST: NS 0.45% 1000 ml BAG 1,000 ML IV SCH; Naloxone 0.4 mg VIAL 0.4 mg/ml 1 ml VIAL IV PRN; Ondansetron 4 mg VIAL 2 MG/ML 2 ml VIAL IV PRN
[2023-11-14] MEDS ORDERED: Scopolamine 1 mg/72hr PATCH ONE (10:56)
[2023-11-14] MEDS ORDERED: ceFAZolin *3* GM in NS PREMIX 3 GM/100 ML BAG IV ONE (10:56)
[2023-11-14] MEDS ORDERED: Heparin 5000 UNITS/ML 1 mL VIAL ONE (10:56)
[2023-11-14] MEDS: Scopolamine 1 mg/72hr PATCH TRANSDERM ONE (11:16)
[2023-11-14 11:20] LABS: Rapid COVID-19 Molecular Undetected (Undetected)
[2023-11-14] MEDS ORDERED: fentaNYL 100 mcg/2 ml 50 MCG/ML VIAL ONE ×2 (11:23→16:42)
[2023-11-14] MEDS ORDERED: Midazolam 2 mg/2 ml VIAL 1 mg/ml 2 ml VIAL (2 mg) ONE (11:24)
[2023-11-14] MEDS ORDERED: Propofol 10 MG/ML 20 ML BTL ONE (11:24)
[2023-11-14] MEDS ORDERED: Lidocaine 2% PF 5 ML VIAL ONE (11:24)
[2023-11-14] MEDS ORDERED: Bupivacaine 0.25% EPI 200,000 30 ML SDV ONE (13:35)
[2023-11-14] MEDS ORDERED: HYDROmorphone 0.5 MG/0.5 ML SYRINGE ONE ×3 (14:21→15:34)
[2023-11-14] MEDS ORDERED: Ondansetron 4 mg VIAL 2 MG/ML 2 ml VIAL ONE (15:58)
[2023-11-14] MEDS ORDERED: Dexamethasone IV 4 MG/ML VIAL 1 ml VIAL ONE (15:58)
[2023-11-14] MEDS: Acetaminophen IV 1 GM/100ML 1,000 MG/100 ML BAG IV ONE (16:29)
[2023-11-14] MEDS: Buffered Lidocaine 1% SYRIN 1 ml INTRADERM ONE (16:29)
[2023-11-14] MEDS: Lactated Ringers 1000 ml BAG 1,000 ML IV SCH ×2 (16:29→21:51)
[2023-11-14] MEDS: fentaNYL 100 mcg/2 ml 50 MCG/ML VIAL IV PRN (16:44)
[2023-11-14] MEDS ORDERED: Ondansetron 4 mg VIAL 2 MG/ML 2 ml VIAL IV PRN (16:47)
[2023-11-14] MEDS ORDERED: HYDROcodone/ACET. 7.5/325 LIQ 15 ML UDC PO PRN (16:47)
[2023-11-14] MEDS ORDERED: HYDROmorphone 1 MG/1 ML SYRINGE IV SLOW PU PRN (16:47)
[2023-11-14] MEDS ORDERED: Dextrose 50% Syringe 50 ml 25 GM/50 ML SYRINGE IV PUSH PRN (16:58)
[2023-11-14] MEDS ORDERED: hydrALAZINE 20 mg/ml 1 ML Vial IV IV SLOW PU PRN (17:01)
[2023-11-14] MEDS ORDERED: hydrALAZINE 20 mg/ml 1 ML Vial IV ONE (17:41)
[2023-11-14] MEDS: hydrALAZINE 20 mg/ml 1 ML Vial IV IV SLOW PU PRN (17:45)
[2023-11-14] MEDS: HYDROmorphone 0.5 MG/0.5 ML SYRINGE IV SLOW PU PRN (20:46)
[2023-11-14] MEDS: Acetaminophen IV 1 GM/100ML 1,000 MG/100 ML BAG IV PRN (21:52)
[2023-11-14] MEDS: Famotidine IV 10 MG/ML 2 ml VIAL (20 mg) IV SLOW PU SCH (21:53)
[2023-11-14] MEDS: Heparin 5000 UNITS/ML 1 mL VIAL SUBCUT SCH (21:55)
[2023-11-15 14:06] VITALS: BP 140/82
[2023-11-15] MEDS ORDERED: D5W 1/2 NS KCl 20 meq 1000 ml 1,000 ML IV SCH (17:00)
== END 2023-11-15 16:00 | disposition home or self-care (01) | DRG 621 ==
LOC: AA 10:17 → SSU 16:47
PROVIDERS: ADMIT Surgery; ATTEND Surgery